=== PATIENT | male | born 1950 | race Caucasian/White ===

== ENCOUNTER 2016-12-11 16:50 | Emergency (ER) | payer OTHER ==
[2016-12-11] MEDS ORDERED: Ondansetron HCl/PF 4 MG/2 ML Vial ONE (17:16)
[2016-12-11 17:21] LABS: #Basophils 0.1 thou/uL (0.0-0.2); #Lymphocytes 0.4 thou/uL (1.20-3.40); #Monocytes 0.6 thou/uL (0.11-0.59); #Neutrophils 9.4 thou/uL (1.40-6.50); %Basophils 0.6 % (0.0-1.0); %Eosinophils 0.3 % (0.0-10.0); %Monocytes 5.5 % (0.0-10.0); Hematocrit 45.8 % (42.0-52.0); Mean Platelet Volume 6.2 fL (7.4-10.4); Red Blood Cell (RBC) Count 4.92 mill/uL (4.70-6.10); White Blood Cell (WBC) Count 10.5 thou/uL (4.8-10.8)
[2016-12-11 17:26] LABS: Magnesium 1.9 mg/dL (1.6-2.6)
[2016-12-11 17:32] LABS: ALT (SGPT) 16 U/L (0-55); AST (SGOT) 16 U/L (5-34); Alkaline Phosphatase 81 U/L (40-150); Anion Gap 14 mmol/L (10-20); BUN (Urea Nitrogen) 19 mg/dL (8.4-25.7); Bilirubin, Total 1.1 mg/dL (0.2-1.2); Calc. Creatinine Clearance 0 mL/min (70-130); Calcium 8.9 mg/dL (7.8-10.44); Carbon Dioxide 28 mmol/L (23-31); Chloride 102 mmol/L (98-107); Estimated GFR-MDRD 63; Globulin 2.9 g/dL (2.4-3.5)
[2016-12-11 17:40] LABS: Troponin I Less than 0.010 ng/mL (< 0.028)
[2016-12-11] MEDS ORDERED: cefTRIAXone\\ROCEPHIN 1 GM VIAL ONE (18:25)
--- NOTE | 2016-12-11 19:00 | RAD ---
PORTABLE CHEST 12/11/2016 An AP portable film at 1708 hours is compared with an 09/14/2016 study. The heart is normal in size , and the lungs are clear. No infiltrate or effusion was seen. There is no vascular congestion or edema. The mediastinum appears normal, and the trachea is midline. IMPRESSION: No acute findings. POS: HOME
[2016-12-11] MEDS ORDERED: Acetaminophen 500 MG TAB ONE ×2 (19:22→19:41)
--- NOTE | 2016-12-11 20:44 | ERRECORD ---
[facility] EMERGENCY RECORD HPI URI (17:54 JPIP) CHIEF COMPLAINT: Patient presents for evaluation of cough, Patient presents for evaluation of + nausea and vomiting with nonproductive cough and fever, states "I don't feel well". HISTORIAN: History provided by patient. LOCATION: No localizing symptoms. SEVERITY: Current severity of pain rated as 0/10. TIME COURSE: Sudden onset of symptoms, Date and time of onset was last night the vomiting and fever started, Symptoms are worsening, today started feeling weak, describes generalized weakness. ASSOCIATED WITH: No associated chest pain, Associated with fever, Measured maximum temperature 101 to 101.9 degrees, No associated headache, No associated neck pain, No associated shortness of breath. EXACERBATED BY: Patient's condition exacerbated by movement. RELIEVED BY: Patient's condition relieved by nothing. ROS (17:56 JPIP) CONSTITUTIONAL: Historian reports chills, reports fatigue, reports fever. measured temperature of 101, Historian reports malaise, reports weakness. ENT: Historian denies dysphagia, denies sinus pain, denies sore throat. CARDIOVASCULAR: Historian denies chest pain, reports palpitations. RESPIRATORY: Historian reports cough, denies shortness of breath, denies sputum, denies stridor, denies wheezing. GI: Historian denies diarrhea, reports nausea, reports vomiting. SKIN: Historian denies rash, denies skin changes, denies skin lesions. NEUROLOGIC: Historian denies confusion, denies dizziness, denies focal weakness, denies lethargy, denies mental status changes. NOTES: All systems reviewed, negative except as described above. PAST MEDICAL HISTORY (17:31 ERUI) MEDICAL HISTORY: Notes: AFIB, Flu vaccine not up to date, Tetanus immunization up to date, Pneumococcal vaccine up to date, Past medical history includes cardiac history, Notes: GERD, Flu vaccine not up to date, Tetanus immunization up to date, Past medical history includes history of hypertension, which has been treated. MALE SURGICAL HISTORY: Patient has no surgical history. PSYCHIATRIC HISTORY: No previous psychiatric history. SOCIAL HISTORY: Patient drinks socially, every week, Patient denies drug use, Patient has no smoking history. &a-1R&a+25V*p+0X*[id number]*c202B*c15G*c2P*p-0X&a-25V&a+1R Name: Ryan Hicks : 1950 M66 MedRec: [id number] AcctNum: [id number] Prepared: Noam Dec 11, 2016 19:58 by Interface Page 1 of 4 pMD [facility] EMERGENCY RECORD KNOWN ALLERGIES No Known Allergies (Unconfirmed) No Known Drug Allergies CURRENT MEDICATIONS Eliquis: TABLET : Strength - 5 mg : ORAL Patient Dose: 1 tab(s) Oral 2 times a day. (17:01 ERUI) lisinopril: TABLET : Strength - 5 mg : ORAL Patient Dose: 1 tab(s) Oral once a day. (17:01 ERUI) montelukast: TABLET : Strength - 10 mg : ORAL Patient Dose: 1 tab(s) Oral once a day (in the morning). (17:01 ERUI) meTOPROLOL tartrate: TABLET : Strength - 50 mg : ORAL Patient Dose: 1 tab(s) Oral 2 times a day. (17:02 ERUI) fluticasone: SPRAY, SUSPENSION : Strength - 50 mcg : NASAL Patient Dose: 2 spray(s) Nares Both once a day. (17:03 ERUI) biotin: CAPSULE : Strength - 10,000 mcg : ORAL Patient Dose: 1 tab(s) Oral once a day. (17:04 ERUI) VITAL SIGNS VITAL SIGNS: BP: 110/74, Pulse: 107-144 (Irregular), Resp: 18, Temp: 98.5 (Oral), Pain: 0, O2 sat: 94 on Room Air, Time: 12/11/2016 16:55. (16:55 AHOO) BP: 104/67, Pulse: 99, Resp: 18, Pain: 0, O2 sat: 98 on Room Air, Time: 12/11/2016 17:32. (17:32 AHOO) BP: 110/67, Pulse: 94, Resp: 18, Pain: 0, O2 sat: 94 on Room Air, Time: 12/11/2016 18:00. (18:00 AHOO) BP: 116/68, Pulse: 107, Resp: 18, Pain: 0, O2 sat: 93 on Room Air, Time: 12/11/2016 18:30. (18:30 AHOO) BP: 121/74, Pulse: 104, Resp: 18, Pain: 0, O2 sat: 97 on Room Air, Time: 12/11/2016 19:00. (19:00 AHOO) BP: 97/68, Pulse: 103, Resp: 18, Temp: 101.3 (Oral), Pain: 0, O2 sat: 96 on Room Air, Time: 12/11/2016 19:16. (19:16 AHOO) PHYSICAL EXAM (17:57 JPIP) CONSTITUTIONAL: Vital signs reviewed, Patient afebrile, Pulse, tachycardic, Blood pressure, hypotensive, Respiratory rate normal, Patient appears, uncomfortable, Patient appears pain free, Patient alert and oriented to person, place and time. HEAD: Head exam included findings of head atraumatic, normocephalic. EYES: Eye exam included findings of eyelids normal to inspection, &a-1R&a+25V*p+0X*[id number]*c202B*c15G*c2P*p-0X&a-25V&a+1R Name: Ryan Hicks : 1950 M66 MedRec: [id number] AcctNum: [id number] Prepared: Noam Dec 11, 2016 19:58 by Interface Page 2 of 4 pMD [facility] EMERGENCY RECORD Conjunctiva normal, Sclera normal, no periorbital ecchymosis, no periorbital edema, no periorbital erythema. ENT: Pharynx exam normal, not injected, no swelling, symmetrical, Uvula exam normal, midline, no edema, Mouth exam normal, mucous membranes moist. NECK: Neck exam included findings of normal range of motion, Trachea midline, no carotid bruits, no jugular venous distention, no cervical adenopathy, no tenderness. RESPIRATORY CHEST: Respiratory exam included findings of no respiratory distress, Breath sounds clear, No wheezing, No rales, No rhonchi, Breath sounds not absent, Breath sounds not diminished. CARDIOVASCULAR: Cardiovascular exam included findings of, rate tachycardic, unable to determine if it is irregularly irregular. ABDOMEN MALE: Abdominal exam included findings of abdomen nontender, Bowel sounds, hypoactive, Liver normal, Spleen normal, no distension, no mass, no pulsatile masses, no peritoneal signs, no rigidity, no guarding, no rebound. BACK: no costovertebral angle tenderness. UPPER EXTREMITY: Upper extremity exam included findings of inspection normal, Range of motion normal. LOWER EXTREMITY: Lower extremity exam included findings of inspection normal, Range of motion normal, no edema. NEURO: Lavinia coma scale 15, Neuro exam findings include patient oriented to person, place and time, Speech normal, no focal motor deficits. SKIN: Skin exam included findings of skin warm, dry, and, pale. LYMPHATIC: Lymphatic exam included findings of cervical nodes normal, Submandibular normal. PSYCHIATRIC: Psychiatric exam included findings of patient oriented to person place and time, Normal affect. EKG INTERPRETATION (17:58 JPIP) MONITOR STRIP: actuarial intern strip interpreted by Emergency Department Physician, Monitor strip shows atrial fibrillation with rapid ventricular response, with no ectopics. 12 LEAD EKG INTERPRETATION: 12 lead EKG interpreted by Emergency Department Physician at time of study, 12 lead EKG shows, atrial fibrillation with rapid ventricular response, Rate (beats per minute): 132, with no ectopics, Conduction with, ST segments normal, T waves, flattened, Areas affected: lateral leads, Clinical impression:, dysrhythmia - atrial. RADIOLOGYINTERPRETATION (17:27 JPIP) CHEST: Chest films negative, no infiltrates, no pneumothorax, no hemothorax, no masses, no cardiomegaly, no congestive heart failure, no effusion, no free air. [employer]: Preliminary review of x-rays by, ED Physician. &a-1R&a+25V*p+0X*[id number]*c202B*c15G*c2P*p-0X&a-25V&a+1R Name: Ryan Hicks Grace : 1950 M66 MedRec: [id number] AcctNum: [id number] Prepared: Noam Dec 11, 2016 19:58 by Interface Page 3 of 4 pMD [facility] EMERGENCY RECORD MEDICATION ADMINISTRATION SUMMARY Drug Name: Tylenol Extra Strength, Dose Ordered: 1000 mg, Route: Oral, Status: Given, Time: 19:23 12/11/2016, Drug Name: Normal Saline, Dose Ordered: 250 mL/hr, Route: IV Fluid Infusion, Status: Given, Time: 19:00 12/11/2016, Drug Name: Rocephin injection, Dose Ordered: 2 g, Route: IV Piggy Back, Status: Given, Time: 18:30 12/11/2016, Drug Name: Cardizem intravenous, Dose Ordered: 5 mg, Route: IV Piggy Back, Status: Given, Time: 17:22 12/11/2016, Drug Name: Zofran intravenous, Dose Ordered: 4 mg, Route: IV Push, Status: Given, Time: 17:20 12/11/2016, Drug Name: Normal Saline, Dose Ordered: 1000 mL/hr, Route: IV Fluid Infusion, Status: Given, Time: 17:16 12/11/2016, Drug Name: Cardizem intravenous, Dose Ordered: 20 mg, Route: IV Push, Status: Given, Time: 17:10 12/11/2016, Detailed record available in Medication Service section. DOCTOR NOTES RE-EVALUATION: Routine re-evaluation, after administration of, cardizem, The patient's condition has improved, patient states he feels better. (18:03 JPIP) TEXT: Discussed findings with patient, recommend transfer to [facility] for further evaluation and treatment. (18:03 JPIP) delay in transfer due to no available ambulance. Still waiting, patient is stable, except for an elevated temp of 101.3 for which he was given Tylenol 1000mg. (19:25 JPIP) PROBLEM LIST No recorded problems DIAGNOSIS (18:05 JPIP) FINAL: PRIMARY: UNSPECIFIED ATRIAL FIBRILLATION, ADDITIONAL: upper respiratory infection. PRESCRIPTION No recorded prescriptions DISPOSITION PATIENT: Disposition Type: Transfer, Disposition: Transfer to [facility], Disposition Transport: Ambulance, Condition: Good. (18:23 JPIP) Patient left the department. (19:57 WJAN) [place]: JOSE ALFREDOOO=ROSA Fontana, February KARLI=JOJO Seals, Alexus JPIP=DO Schilling Joseph WJAN=JOJO Langston, Radha &a-1R&a+25V*p+0X*[id number]*c202B*c15G*c2P*p-0X&a-25V&a+1R Name: Ryan Hicks : 1950 M66 MedRec: [id number] AcctNum: [id number] Prepared: Noam Dec 11, 2016 19:58 by Interface Page 4 of 4 pMD MTDD
--- NOTE | 2016-12-11 20:49 | PICIS ---
[facility] EMERGENCY RECORD COMMUNICATIONS (18:23 JPIP) COMMUNICATIONS: Physician, contacted/paged at [phone], Reason for notification transfer and admission, Dr Martinez accepts. TRIAGE (16:57 ERUI) TRIAGE NOTES: C/O OF NOT FEELING WELL, ONSET LAST NIGHT, HX OF AFIB, PT ALSO C/O VOMITING, FEVER, DENIES CP OR SOB. (16:57 ERUI) PATIENT: NAME: Ryan Hicks, AGE: 66, GENDER: male, : [facility] 1950, TIME OF GREET: SatDec 11, 2016 16:51, PREFERRED LANGUAGE: Maori, ETHNICITY: Not or , ECODE BILLING MAP: [facility], SSN: [id number], Zip Code: [address], KG WEIGHT: 86.18, PHONE: , , , PERSON ID: [id number], PCP: DO GARNER KRISTEL. (16:57 ERUI) COMPLAINT: VOMITING, FEVER. (16:57 ERUI) ADMISSION: URGENCY: 2 Emergent, ADMISSION SOURCE: Home, TRANSPORT: CAR, BED: TRIAGE. (16:57 ERUI) SIRS SCORING: Heart Rate 110-139 (2), Temp range 96.8-101.1 (0), respiratory rate 12-24 (0), Mental status altered: yes (1). (17:31 ERUI) TRIAGE SCREENING: Patient denies suicidal ideation, Patient denies presence of domestic violence. (17:31 ERUI) TREATMENTS IN PROGRESS: Treatments given Prehospital: NONE. (17:31 ERUI) PROVIDERS: TRIAGE NURSE: Alexus Seals RN. (16:57 ERUI) PREVIOUS VISIT ALLERGIES: No Known Drug Allergies. (16:57 ERUI) No Known Drug Allergies. (17:31 ERUI) KNOWN ALLERGIES No Known Allergies (Unconfirmed) No Known Drug Allergies CURRENT MEDICATIONS Eliquis: TABLET : Strength - 5 mg : ORAL Patient Dose: 1 tab(s) Oral 2 times a day. (17:01 ERUI) lisinopril: TABLET : Strength - 5 mg : ORAL Patient Dose: 1 tab(s) Oral once a day. (17:01 ERUI) montelukast: TABLET : Strength - 10 mg : ORAL Patient Dose: 1 tab(s) Oral once a day (in the morning). (17:01 ERUI) meTOPROLOL tartrate: TABLET : Strength - 50 mg : ORAL Patient Dose: 1 tab(s) Oral 2 times a day. (17:02 ERUI) fluticasone: SPRAY, SUSPENSION : Strength - 50 mcg : NASAL Patient Dose: 2 spray(s) Nares Both once a day. (17:03 &a-1R&a+25V*p+0X*j0881A*c202B*c15G*c2P*p-0X&a-25V&a+1R Name: Ryan Hicks : 1950 M66 MedRec: [id number] AcctNum: [id number] Prepared: Noam Dec 11, 2016 20:04 by Interface Page 1 of 14 pMD [facility] EMERGENCY RECORD ERUI) biotin: CAPSULE : Strength - 10,000 mcg : ORAL Patient Dose: 1 tab(s) Oral once a day. (17:04 ERUI) VITAL SIGNS VITAL SIGNS: BP: 110/74, Pulse: 107-144 (Irregular), Resp: 18, Temp: 98.5 (Oral), Pain: 0, O2 sat: 94 on Room Air, Time: 12/11/2016 16:55. (16:55 AHOO) BP: 104/67, Pulse: 99, Resp: 18, Pain: 0, O2 sat: 98 on Room Air, Time: 12/11/2016 17:32. (17:32 AHOO) BP: 110/67, Pulse: 94, Resp: 18, Pain: 0, O2 sat: 94 on Room Air, Time: 12/11/2016 18:00. (18:00 AHOO) BP: 116/68, Pulse: 107, Resp: 18, Pain: 0, O2 sat: 93 on Room Air, Time: 12/11/2016 18:30. (18:30 AHOO) BP: 121/74, Pulse: 104, Resp: 18, Pain: 0, O2 sat: 97 on Room Air, Time: 12/11/2016 19:00. (19:00 AHOO) BP: 97/68, Pulse: 103, Resp: 18, Temp: 101.3 (Oral), Pain: 0, O2 sat: 96 on Room Air, Time: 12/11/2016 19:16. (19:16 AHOO) NURSING ASSESSMENT: CARDIOVASCULAR (17:31 ERUI) CONSTITUTIONAL: Patient arrives ambulatory, Gait steady, History obtained from patient, Patient appears comfortable, Patient cooperative, Patient alert, Oriented to person, place and time, Skin warm, Skin dry, Patient complains of FEVER, VOMTING. PAIN: Patient rates pain as 0 out of 10. CARDIOVASCULAR: Heart rhythm, atrial fibrillation with rapid ventricular response. RESPIRATORY/CHEST: Breath sounds clear, Respiratory assessment findings include respiratory effort easy, Respirations regular, Conversing normally, Neck and chest exam findings include trachea midline, Chest expansion equal, Chest movement symmetrical, no signs of distress, no associated cough noted, no associated fever. SAFETY: Side rails up, Cart/Stretcher in lowest position, Family at bedside, Call light within reach, Hospital ID band on, Patient in view of the nursing station. NURSING ASSESSMENT: FALL RISK (19:02 WJAN) FALL RISK: Fall risk assessment findings include: no history of falls (0), No bed rest greater than 2 days (0), No use of level of consciousness altering agents with mentation or cognitive changes (0), No change in blood pressure (0), No sensory deficits (0), No impaired mobility (0), No neurologic diagnosis (0), No elimination problems (0), No confusion (0), Total score 0. NURSING ASSESSMENT: SKIN (19:03 WJAN) SKIN: Skin assessment findings include skin warm, Skin dry, Skin normal in color, Inspection findings include: No pressure ulcer to the shoulder, Inspection findings include no pressure ulcer to the elbow, Inspection findings include no pressure ulcers to the hip, &a-1R&a+25V*p+0X*d3875S*c202B*c15G*c2P*p-0X&a-25V&a+1R Name: Ryan Hicks : 1950 M66 MedRec: [id number] AcctNum: [id number] Prepared: Noam Dec 11, 2016 20:04 by Interface Page 2 of 14 pMD [facility] EMERGENCY RECORD Inspection findings include no pressure ulcer to the sacrum, Inspection findings include no pressure ulcer to the heel, Inspection findings include no pressure ulcer, Inspection findings include no pressure ulcer. SAFETY: Side rails up, Cart/Stretcher in lowest position, Call light within reach, Hospital ID band on. NURSING PROCEDURE: BEDSIDE SIRS TESTING (19:04 WJAN) SCORES: Heart Rate 55-109 (0), Temp range 96.8-101.1 (0), respiratory rate 12-24 (0), Latest WBC 3-14.9 (0), Mental Status altered: no (0), Infection or Suspected Infection: No. NURSING PROCEDURE: EXECUTIVE PASTRY CHEF (17:07 AHOO) PATIENT IDENTIFIER: Patient actively involved in identification process, Patient's identity verified by patient stating name, Patient's identity verified by patient stating date, Patient's identity verified by hospital ID bracelet, Patient's identity verified by family member. NURSING PROCEDURE: EKG CHART (17:00 AHOO) PATIENT IDENTIFIER: Patient actively involved in identification process, Patient's identity verified by patient stating name, Patient's identity verified by patient stating date, Patient's identity verified by hospital ID bracelet, Patient's identity verified by family member. EKG: EKG indicated for not feeling well, 12 lead EKG performed on the left chest, done by MARISSA FRANCOIS LVN, first EKG. FOLLOW-UP: After procedure, EKG for interpretation given to Dr. DR SCHILLING. NURSING PROCEDURE: IV (17:10 ERUI) PATIENT IDENITIFIER: Patient actively involved in identification process, Patient's identity verified by patient stating name, Patient's identity verified by patient stating date. IV SITE 1: IV therapy indicated for medication administration, IV established, to the left antecubital, using an 18 gauge catheter, in one attempt, Saline lock established, Labs drawn at time of placement, labeled in the presence of the patient and sent to lab. SAFETY: Side rails up, Cart/Stretcher in lowest position, Family at bedside, Call light within reach, Hospital ID band on. NURSING PROCEDURE: NURSE NOTES NURSES NOTES: Notes: REPORT TO NIGHT NURSE. (19:32 ERUI) Patient in no apparent distress, Notes: EMS at bedside, report given to EMS. (19:53 WJAN) NURSING PROCEDURE: TRANSFER (19:53 WJAN) TRANSFER: Reason for transfer need for specialized care, Transported by non-urgent ambulance, Report called to receiving &a-1R&a+25V*p+0X*[id number]*c202B*c15G*c2P*p-0X&a-25V&a+1R Name: Ryan Hicks : 1950 M66 MedRec: [id number] AcctNum: [id number] Prepared: SatDec 11, 2016 20:04 by Interface Page 3 of 14 pMD [facility] EMERGENCY RECORD facility, Summary of Care printed, Copy of patient record prepared for receiving facility, Copy of diagnostic studies, Medication reconciliation form prepared and sent to receiving facility, Patient consent for transfer signed, Family member contacted, . BELONGINGS: Belongings remain with patient, Valuables remain with patient. SAFETY: Side rails up, Cart/Stretcher in lowest position, Family at bedside, Call light within reach, Hospital ID band on. ORDER DETAILS Order Name: B type Natriuretic Peptide, Status: Active, Time: 17:05 12/11/2016, User: FABRICE, - Ordered for: DO Schilling Joseph, - Entered by: DO Schilling Joseph - SatDec 11, 2016 17:05, - Quantity: 1, Order Name: EXECUTIVE PASTRY CHEF ED, Status: Done, Time: 17:07 12/11/2016, User: IGNACIO, - Ordered for: DO Schilling Joseph, - Entered by: DO Schilling Joseph - SatDec 11, 2016 17:05, - Quantity: 1, Order Name: Cardiac Profile w/CKMB & Troponin - I, Status: Active, Time: 17:05 12/11/2016, User: FABRICE, - Ordered for: DO Schilling Joseph, - Entered by: DO Schilling Joseph - SatDec 11, 2016 17:05, - Quantity: 1, Order Name: CBC with Differential, Status: Active, Time: 17:05 12/11/2016, User: FABRICE, - Ordered for: DO Schilling Joseph, - Entered by: DO Schilling Joseph - SatDec 11, 2016 17:05, - Quantity: 1, Order Name: Comprehensive Metabolic Panel, Status: Active, Time: 17:05 12/11/2016, User: FABRICE, - Ordered for: DO Schilling Joseph, - Entered by: DO Schilling Joseph - SatDec 11, 2016 17:05, - Quantity: 1, Order Name: EKG 12 Lead in Emergency Room, Status: Active, Time: 17:05 12/11/2016, User: FABRICE, - Ordered for: DO Schilling Joseph, - Entered by: DO Schilling Joseph - tom Dec 11, 2016 17:05, - Quantity: 1, Order Name: ERRT Pulse Oximeter ER, Status: Active, Time: 17:05 12/11/2016, User: FABRICE, - Ordered for: DO Schilling Joseph, - Entered by: DO Schilling Joseph - tom Dec 11, 2016 17:05, - Quantity: 1, Order Name: Influenza A&B Ag Screen, Status: Active, Time: 19:18 12/11/2016, User: FABRICE, - Ordered for: DO Schilling Joseph, - Entered by: DO Schilling Joseph - SatDec 11, 2016 19:18, &a-1R&a+25V*p+0X*[id number]*c202B*c15G*c2P*p-0X&a-25V&a+1R Name: Nadersalinasfaisal Ryan D : 1950 M66 MedRec: [id number] AcctNum: [id number] Prepared: SatDec 11, 2016 20:04 by Interface Page 4 of 14 D [facility] EMERGENCY RECORD - Quantity: 1, Order Name: Magnesium, Status: Active, Time: 17:05 12/11/2016, User: FABRICE, - Ordered for: DO Schilling Joseph, - Entered by: DO Schilling Joseph - SatDec 11, 2016 17:05, - Quantity: 1, Order Name: SALINE LOCK, Status: Done, Time: 17:07 12/11/2016, User: IGNACIO, - Ordered for: DO Schilling Joseph, - Entered by: DO Schilling Joseph - tom Dec 11, 2016 17:05, - Quantity: 1, Order Name: Thyroid Stimulating Hormone, Status: Active, Time: 17:27 12/11/2016, User: FABRICE, - Ordered for: DO Schilling Joseph, - Entered by: DO Schilling Joseph - tom Dec 11, 2016 17:27, - Quantity: 1, Order Name: XR Chest 1 View Portable, Status: Active, Time: 17:05 12/11/2016, User: FABRICE, - Ordered for: DO Schilling Joseph, - Entered by: DO Schilling Joseph - SatDec 11, 2016 17:05, - Quantity: 1. MEDICATION ADMINISTRATION SUMMARY Drug Name: Tylenol Extra Strength, Dose Ordered: 1000 mg, Route: Oral, Status: Given, Time: 19:23 12/11/2016, Drug Name: Normal Saline, Dose Ordered: 250 mL/hr, Route: IV Fluid Infusion, Status: Given, Time: 19:00 12/11/2016, Drug Name: Rocephin injection, Dose Ordered: 2 g, Route: IV Piggy Back, Status: Given, Time: 18:30 12/11/2016, Drug Name: Cardizem intravenous, Dose Ordered: 5 mg, Route: IV Piggy Back, Status: Given, Time: 17:22 12/11/2016, Drug Name: Zofran intravenous, Dose Ordered: 4 mg, Route: IV Push, Status: Given, Time: 17:20 12/11/2016, Drug Name: Normal Saline, Dose Ordered: 1000 mL/hr, Route: IV Fluid Infusion, Status: Given, Time: 17:16 12/11/2016, Drug Name: Cardizem intravenous, Dose Ordered: 20 mg, Route: IV Push, Status: Given, Time: 17:10 12/11/2016, Detailed record available in Medication Service section. MEDICATION SERVICE Cardizem intravenous: Order: Cardizem intravenous (diltiazem HCl) - Dose: 20 mg : IV Push Schedule: Now Ordered by: Luis Schilling DO Entered by: Luis Schilling DO SatDec 11, 2016 17:05 , Acknowledged by: Marissa Francois LVN SatDec 11, 2016 17:14 Documented as given by: Alexus Seals RN SatDec 11, 2016 17:10 Patient, Medication, Dose, Route and Time verified prior to administration. &a-1R&a+25V*p+0X*u2410Y*c202B*c15G*c2P*p-0X&a-25V&a+1R Name: Ryan Hicks : 1950 M66 MedRec: [id number] AcctNum: [id number] Prepared: SatDec 11, 2016 20:04 by Interface Page 5 of 14 pMD [facility] EMERGENCY RECORD Amount given: 20MG, Amount wasted: 30MG, IV SITE #1 IVP, initial medication, Slowly, Catheter placement confirmed via flush prior to administration, IV site without signs or symptoms of infiltration during medication administration, No swelling during administration, No drainage during administration, IV flushed after administration, Correct patient, time, route, dose and medication confirmed prior to administration, Patient advised of actions and side-effects prior to administration, Allergies confirmed and medications reviewed prior to administration, Patient in position of comfort, Side rails up, Cart in lowest position, Family at bedside. : Follow Up : Response assessment performed, No signs or symptoms of allergic reaction noted, Decreased heart rate, _IV SITE #1:_. (19:11 [facility]) Cardizem intravenous: Order: Cardizem intravenous (diltiazem HCl) - Dose: 5 mg : IV Piggy Back Schedule: Every hour Ordered by: Luis Schilling DO Entered by: Luis Schilling DO tom Dec 11, 2016 17:05 , Acknowledged by: Marissa Francois LVN SatDec 11, 2016 17:14 Documented as given by: Alexus Seals RN SatDec 11, 2016 17:22 Patient, Medication, Dose, Route and Time verified prior to administration. Amount given: 5MG/HR, IV SITE #1 IVPB or drip, initial infusion, IVPB mixed in: 100ml, Fluid: 0.9NS, via primary tubing, via pump tubing, on an IV pump, Awake and alert- acceptable, Catheter placement confirmed via flush prior to administration, IV site without signs or symptoms of infiltration during medication administration, No swelling during administration, No drainage during administration, IV flushed after administration, Correct patient, time, route, dose and medication confirmed prior to administration, Patient advised of actions and side-effects prior to administration, Allergies confirmed and medications reviewed prior to administration, Patient in position of comfort, Side rails up, Cart in lowest position, Family at bedside. : Follow Up : No signs or symptoms of allergic reaction noted, _IV SITE #1:_, Medication infusion continued upon transfer from emergency department, on SatDec 11, 2016 19:53, Total infusion time IV site 1 2 hours, 35 minutes, ., Total amount infused: 13mg, Advised not to ambulate without assistance, Patient in position of comfort, Side rails up, Cart in lowest position, Family at bedside. (19:54 WJAN) Normal Saline: Order: Normal Saline (0.9 % sodium chloride) - Dose: 1000 mL/hr : IV Fluid Infusion Schedule: Now Ordered by: Luis Schilling DO Entered by: Luis Schilling DO SatDec 11, 2016 17:06 , Acknowledged by: Marissa Francois LVN SatDec 11, 2016 17:14 Documented as given by: Marissa Francois LVN SatDec 11, 2016 17:16 Patient, Medication, Dose, Route and Time verified prior to administration. &a-1R&a+25V*p+0X*u8620N*c202B*c15G*c2P*p-0X&a-25V&a+1R Name: Kurt Ryan D : 1950 M66 MedRec: [id number] AcctNum: [id number] Prepared: SatDec 11, 2016 20:04 by Interface Page 6 of 14 pMD [facility] EMERGENCY RECORD Amount given: 1 L, IV SITE #1 IV fluids established for hydration, IV SITE #1 into left antecubital, IV SITE #1 1st bag hung, via gravity tubing, Catheter placement confirmed via flush prior to administration, IV site without signs or symptoms of infiltration during medication administration, No swelling during administration, No drainage during administration, IV flushed after administration, Correct patient, time, route, dose and medication confirmed prior to administration, Patient advised of actions and side-effects prior to administration, Allergies confirmed and medications reviewed prior to administration, Patient in position of comfort, Side rails up, Cart in lowest position, Family at bedside. : Follow Up : Response assessment performed, No signs or symptoms of allergic reaction noted, _IV SITE #1:_. (19:07 AHOO) : Follow Up : Response assessment performed, No signs or symptoms of allergic reaction noted, _IV SITE #1:_, IV fluid infusion discontinued, on SatDec 11, 2016 18:00, 45 minutes, ., Total amount infused: 1 L, IV Line flushed after administration. (18:00 OO) Normal Saline: Order: Normal Saline (0.9 % sodium chloride) - Dose: 250 mL/hr : IV Fluid Infusion Ordered by: Luis Schilling DO Entered by: Luis Schilling DO SatDec 11, 2016 19:17 , Acknowledged by: Marissa Francois LVN SatDec 11, 2016 19:20 Documented as given by: Marissa Francois LVN SatDec 11, 2016 19:00 Patient, Medication, Dose, Route and Time verified prior to administration. Verbal order read back and verified, Amount given: 250ML/HR, IV SITE #1 IV fluids established for hydration, IV SITE #1 into left antecubital, IV SITE #1 2nd bag hung, via gravity tubing, Catheter placement confirmed via flush prior to administration, IV site without signs or symptoms of infiltration during medication administration, No swelling during administration, No drainage during administration, IV flushed after administration, Correct patient, time, route, dose and medication confirmed prior to administration, Patient advised of actions and side-effects prior to administration, Allergies confirmed and medications reviewed prior to administration. : Follow Up : No signs or symptoms of allergic reaction noted, _IV SITE #1:_, IV fluid infusion continued upon transfer from emergency department, on SatDec 11, 2016 19:53, 55 minutes, ., Total amount infused: 500ml, Advised not to ambulate without assistance, Patient in position of comfort, Side rails up, Cart in lowest position, Family at bedside. (19:53 WJAN) Rocephin injection: Order: Rocephin injection (ceftriaxone sodium) - Dose: 2 g : IV Piggy Back Schedule: Now Ordered by: Luis Schilling DO Entered by: Luis Schilling DO SatDec 11, 2016 17:53 , Acknowledged by: Marissa Francois LVN SatDec 11, 2016 18:24 Documented as given by: Marissa Francois LVN SatDec 11, 2016 18:30 Patient, Medication, Dose, Route and Time verified prior to &a-1R&a+25V*p+0X*b8358W*c202B*c15G*c2P*p-0X&a-25V&a+1R Name: Ryan Hicks : 1950 M66 MedRec: [id number] AcctNum: [id number] Prepared: SatDec 11, 2016 20:04 by Interface Page 7 of 14 pMD [facility] EMERGENCY RECORD administration. Amount given: 2 GRAMS, IV SITE #1 IVPB or drip, initial infusion, Awake and alert- acceptable, Catheter placement confirmed via flush prior to administration, IV site without signs or symptoms of infiltration during medication administration, No swelling during administration, No drainage during administration, IV flushed after administration, Correct patient, time, route, dose and medication confirmed prior to administration, Patient advised of actions and side-effects prior to administration, Allergies confirmed and medications reviewed prior to administration, Patient in position of comfort, Side rails up, Cart in lowest position, Family at bedside. : Follow Up : Response assessment performed, No signs or symptoms of allergic reaction noted. (19:06 AHOO) : Follow Up : No signs or symptoms of allergic reaction noted, MD DID NOT WANT ANY BLOOD CULTURES BEFORE I STARTED ABX, Response assessment performed. (19:32 AHOO) Tylenol Extra Strength: Order: Tylenol Extra Strength (acetaminophen) - Dose: 1000 mg : Oral Schedule: Now Ordered by: Luis Schilling DO Entered by: Luis Schilling DO SatDec 11, 2016 19:18 , Acknowledged by: Marissa Francois LVN SatDec 11, 2016 19:20 Documented as given by: Marsisa Francois LVN SatDec 11, 2016 19:23 Patient, Medication, Dose, Route and Time verified prior to administration. Amount given: 1000MG, Correct patient, time, route, dose and medication confirmed prior to administration, Patient advised of actions and side-effects prior to administration, Allergies confirmed and medications reviewed prior to administration, Patient in position of comfort, Side rails up, Cart in lowest position, Family at bedside. Zofran intravenous: Order: Zofran intravenous (ondansetron HCl) - Dose: 4 mg : IV Push Schedule: Now Ordered by: Luis Schilling DO Entered by: Luis Schilling DO SatDec 11, 2016 17:06 , Acknowledged by: Marissa Francois LVN SatDec 11, 2016 17:14 Documented as given by: Alexus Seals RN SatDec 11, 2016 17:20 Patient, Medication, Dose, Route and Time verified prior to administration. Amount given: 4MG`, IV SITE #1 IVP, initial medication, Slowly, Catheter placement confirmed via flush prior to administration, IV site without signs or symptoms of infiltration during medication administration, No swelling during administration, No drainage during administration, IV flushed after administration, Correct patient, time, route, dose and medication confirmed prior to administration, Patient advised of actions and side-effects prior to administration, Allergies confirmed and medications reviewed prior to administration, Patient in position of comfort, Side rails up, Cart in lowest position, Family at bedside. &a-1R&a+25V*p+0X*z2584Q*c202B*c15G*c2P*p-0X&a-25V&a+1R Name: Ryan Hicks : 1950 M66 MedRec: [id number] AcctNum: [id number] Prepared: Noam Dec 11, 2016 20:04 by Interface Page 8 of 14 pMD [facility] EMERGENCY RECORD : Follow Up : Response assessment performed, No signs or symptoms of allergic reaction noted, _IV SITE #1:_. (19:10 OO) HPI URI (17:54 JPIP) CHIEF COMPLAINT: Patient presents for evaluation of cough, Patient presents for evaluation of + nausea and vomiting with nonproductive cough and fever, states "I don't feel well". HISTORIAN: History provided by patient. LOCATION: No localizing symptoms. SEVERITY: Current severity of pain rated as 0/10. TIME COURSE: Sudden onset of symptoms, Date and time of onset was last night the vomiting and fever started, Symptoms are worsening, today started feeling weak, describes generalized weakness. ASSOCIATED WITH: No associated chest pain, Associated with fever, Measured maximum temperature 101 to 101.9 degrees, No associated headache, No associated neck pain, No associated shortness of breath. EXACERBATED BY: Patient's condition exacerbated by movement. RELIEVED BY: Patient's condition relieved by nothing. ROS (17:56 JPIP) CONSTITUTIONAL: Historian reports chills, reports fatigue, reports fever. measured temperature of 101, Historian reports malaise, reports weakness. ENT: Historian denies dysphagia, denies sinus pain, denies sore throat. CARDIOVASCULAR: Historian denies chest pain, reports palpitations. RESPIRATORY: Historian reports cough, denies shortness of breath, denies sputum, denies stridor, denies wheezing. GI: Historian denies diarrhea, reports nausea, reports vomiting. SKIN: Historian denies rash, denies skin changes, denies skin lesions. NEUROLOGIC: Historian denies confusion, denies dizziness, denies focal weakness, denies lethargy, denies mental status changes. NOTES: All systems reviewed, negative except as described above. PAST MEDICAL HISTORY (17:31 ERUI) MEDICAL HISTORY: Notes: AFIB, Flu vaccine not up to date, Tetanus immunization up to date, Pneumococcal vaccine up to date, Past medical history includes cardiac history, Notes: GERD, Flu vaccine not up to date, Tetanus immunization up to date, Past medical history includes history of hypertension, which has been treated. MALE SURGICAL HISTORY: Patient has no surgical history. PSYCHIATRIC HISTORY: No previous psychiatric history. &a-1R&a+25V*p+0X*u3365F*c202B*c15G*c2P*p-0X&a-25V&a+1R Name: Ryan Hicks : 1950 M66 MedRec: [id number] AcctNum: [id number] Prepared: Noam Dec 11, 2016 20:04 by Interface Page 9 of 14 pMD [facility] EMERGENCY RECORD SOCIAL HISTORY: Patient drinks socially, every week, Patient denies drug use, Patient has no smoking history. PHYSICAL EXAM (17:57 JPIP) CONSTITUTIONAL: Vital signs reviewed, Patient afebrile, Pulse, tachycardic, Blood pressure, hypotensive, Respiratory rate normal, Patient appears, uncomfortable, Patient appears pain free, Patient alert and oriented to person, place and time. HEAD: Head exam included findings of head atraumatic, normocephalic. EYES: Eye exam included findings of eyelids normal to inspection, Conjunctiva normal, Sclera normal, no periorbital ecchymosis, no periorbital edema, no periorbital erythema. ENT: Pharynx exam normal, not injected, no swelling, symmetrical, Uvula exam normal, midline, no edema, Mouth exam normal, mucous membranes moist. NECK: Neck exam included findings of normal range of motion, Trachea midline, no carotid bruits, no jugular venous distention, no cervical adenopathy, no tenderness. RESPIRATORY CHEST: Respiratory exam included findings of no respiratory distress, Breath sounds clear, No wheezing, No rales, No rhonchi, Breath sounds not absent, Breath sounds not diminished. CARDIOVASCULAR: Cardiovascular exam included findings of, rate tachycardic, unable to determine if it is irregularly irregular. ABDOMEN MALE: Abdominal exam included findings of abdomen nontender, Bowel sounds, hypoactive, Liver normal, Spleen normal, no distension, no mass, no pulsatile masses, no peritoneal signs, no rigidity, no guarding, no rebound. BACK: no costovertebral angle tenderness. UPPER EXTREMITY: Upper extremity exam included findings of inspection normal, Range of motion normal. LOWER EXTREMITY: Lower extremity exam included findings of inspection normal, Range of motion normal, no edema. NEURO: [place] coma scale 15, Neuro exam findings include patient oriented to person, place and time, Speech normal, no focal motor deficits. SKIN: Skin exam included findings of skin warm, dry, and, pale. LYMPHATIC: Lymphatic exam included findings of cervical nodes normal, Submandibular normal. PSYCHIATRIC: Psychiatric exam included findings of patient oriented to person place and time, Normal affect. LAB INTERPRETATION INTERPRETATION: I reviewed the lab results, CBC abnormal, White blood cell count normal, Hemoglobin normal, Hematocrit normal, Neutrophils elevated, Chemistry normal, Cardiac enzymes abnormal, CK-MB normal, Troponin normal, &a-1R&a+25V*p+0X*w1135V*c202B*c15G*c2P*p-0X&a-25V&a+1R Name: Ryan Hicks : 1950 M66 MedRec: [id number] AcctNum: [id number] Prepared: SatDec 11, 2016 20:04 by Interface Page 10 of 14 pMD [facility] EMERGENCY RECORD BNP elevated, Liver functions normal, mag 1.9. (18:02 JPIP) Influenza negative. (19:55 JPIP) EVENTS TRANSFER: Triage to Emergency Triage. (SatDec 11, 2016 16:57 ERUI) Emergency Triage to Emergency Room -01. (16:58 ERUI) Removed from Emergency Emergency Room -01. (19:57 WJAN) RADIOLOGYINTERPRETATION (17:27 JPIP) CHEST: Chest films negative, no infiltrates, no pneumothorax, no hemothorax, no masses, no cardiomegaly, no congestive heart failure, no effusion, no free air. 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 EKG INTERPRETATION (17:58 JPIP) MONITOR STRIP: laboratory monitor strip interpreted by Emergency Department Physician, Monitor strip shows atrial fibrillation with rapid ventricular response, with no ectopics. 12 LEAD EKG INTERPRETATION: 12 lead EKG interpreted by Emergency Department Physician at time of study, 12 lead EKG shows, atrial fibrillation with rapid ventricular response, Rate (beats per minute): 132, with no ectopics, Conduction with, ST segments normal, T waves, flattened, Areas affected: lateral leads, Clinical impression:, dysrhythmia - atrial. O2SAT INTERPRETATION (17:58 JPIP) O2SAT: Continuous pulse oximetry, Oxygen saturation 96%, on room air, Oxygen saturation interpretation: Normal, No intervention required, Intervention required: patient observed. DOCTOR NOTES RE-EVALUATION: Routine re-evaluation, after administration of, cardizem, The patient's condition has improved, patient states he feels better. (18:03 JPIP) TEXT: Discussed findings with patient, recommend transfer to [facility] for further evaluation and treatment. (18:03 JPIP) delay in transfer due to no available ambulance. Still waiting, patient is stable, except for an elevated temp of 101.3 for which he was given Tylenol 1000mg. (19:25 JPIP) PROBLEM LIST No recorded problems DIAGNOSIS (18:05 JPIP) FINAL: PRIMARY: UNSPECIFIED ATRIAL FIBRILLATION, ADDITIONAL: upper respiratory infection. &a-1R&a+25V*p+0X*b8123F*c202B*c15G*c2P*p-0X&a-25V&a+1R Name: Ryan Hicks : 1950 M66 MedRec: [id number] AcctNum: [id number] Prepared: Noam Dec 11, 2016 20:04 by Interface Page 11 of 14 D [facility] EMERGENCY RECORD DISPOSITION PATIENT: Disposition Type: Transfer, Disposition: Transfer to [facility], Disposition Transport: Ambulance, Condition: Good. (18:23 JPIP) Patient left the department. (19:57 WJAN) PRESCRIPTION No recorded prescriptions IMAGING *EKG: Image captured from scanner. (17:05 AHOO) *SUPPLY CHARGE SHEET: Image captured from scanner. (19:58 WJAN) CONSENT TO TRANSFER: Image captured from scanner. (19:59 WJAN) *MEMORANDUM OF TRANSFER: Image captured from scanner. (19:59 WJAN) PHYSICIAN CERTIFICATION STATEMENT: Image captured from scanner. (20:00 WJAN) RESULTS LABORATORY: CBC with Differential Collection DT: SatDec 11, 2016 17:17, White Blood Cell (WBC) Count 10.5 thou/uL, Range (4.8-10.8), Red Blood Cell (RBC) Count 4.92 mill/uL, Range (4.70-6.10), Hemoglobin 15.5 g/dL, Range (14.0-18.0), Hematocrit 45.8 %, Range (42.0-52.0), Mean Corpuscular Volume 93.2 fl, Range (80.0-94.0), *Mean Corpuscular Hemoglobin 31.5 - H pg, Range (27.0-31.0), Mean Corpuscular HGB CONC 33.8 g/dL, Range (32.0-36.0), *RBC Distribution Width 11.4 - L %, Range (11.5-14.5), Platelet Count 203 thou/uL, Range (130-400), *Mean Platelet Volume 6.2 - L fL, Range (7.4-10.4), *%Neutrophils 89.6 - H %, Range (42.0-75.0), *%Lymphocytes 4.0 - L %, Range (21.0-51.0), %Monocytes 5.5 %, Range (0.0-10.0), %Eosinophils 0.3 %, Range (0.0-10.0), %Basophils 0.6 %, Range (0.0-1.0), *#Neutrophils 9.4 - H thou/uL, Range (1.40-6.50), *#Lymphocytes 0.4 - L thou/uL, Range (1.20-3.40), *#Monocytes 0.6 - H thou/uL, Range (0.11-0.59), #Eosinphils 0.0 thou/uL, Range (0.0-0.7), #Basophils 0.1 thou/uL, Range (0.0-0.2). (17:27 JPIP) Magnesium Collection DT: SatDec 11, 2016 17:15, Magnesium 1.9 mg/dL, Range (1.6-2.6). (17:29 JPIP) Magnesium Collection DT: SatDec 11, 2016 17:15, Magnesium 1.9 mg/dL, Range (1.6-2.6). (17:35 JPIP) Comprehensive Metabolic Panel Collection DT: SatDec 11, 2016 17:15, Sodium 140 mmol/L, Range (136-145), Potassium 4.3 mmol/L, Range (3.5-5.1), Chloride 102 mmol/L, Range (98-107), Carbon Dioxide 28 mmol/L, Range (23-31), &a-1R&a+25V*p+0X*v9828F*c202B*c15G*c2P*p-0X&a-25V&a+1R Name: Ryan Hicks Grace : 1950 M66 MedRec: [id number] AcctNum: [id number] Prepared: SatDec 11, 2016 20:04 by Interface Page 12 of 14 pMD [facility] EMERGENCY RECORD Anion Gap 14 mmol/L, Range (10-20), BUN (Urea Nitrogen) 19 mg/dL, Range (8.4-25.7), Creatinine 1.17 mg/dL, Range (0.7-1.3), Estimated GFR-MDRD 63 , Reference Range for Estimated GFR: Greater than 90, mL/min/1.73 m2 NOTE: The MDRD equation has not been validated for use, with the elderly (over 70 years of age), women, patients with, serious comorbid condition or persons with extremes of body size, muscle, mass, or nutritional status. , Glucose 110 mg/dL, Range (80-115), Calcium 8.9 mg/dL, Range (7.8-10.44), Bilirubin, Total 1.1 mg/dL, Range (0.2-1.2), Protein, Total 7.0 g/dL, Range (5.8-8.1), NOTE: Plasma values are generally 0.3 to 0.5 g/dL higher than serum values, due to the presence of fibrinogen. , Albumin 4.1 g/dL, Range (3.4-4.8), Globulin 2.9 g/dL, Range (2.4-3.5), Alb/Glob Ratio 1.4 g/dL, Range (1.2-2.2), Alkaline Phosphatase 81 U/L, Range (40-150), AST (SGOT) 16 U/L, Range (5-34), ALT (SGPT) 16 U/L, Range (0-55). (17:35 JPIP) B type Natriuretic Peptide Collection DT: SatDec 11, 2016 17:17, *B type Natriuretic Peptide 264.9 - H pg/mL, Range (0-100). (17:48 JPIP) Cardiac Profile w/CKMB & TropI Collection DT: SatDec 11, 2016 17:22, CKMB 0.6 ng/mL, Range (0-6.6), Troponin I Less than 0.010 ng/mL, Range (< 0.028), Reference Range , 0.00 - 0.028 ng/mL Negative 0.029 - 0.29 ng/mL , Indeterminate Greater or Equal to 0.3 ng/mL Strongly suggests IN , . (17:48 JPIP) Thyroid Stimulating Hormone Collection DT: SatDec 11, 2016 17:32, Thyroid Stimulating Hormone 1.0942 uIU/mL, Range (0.35-4.94). (18:11 JPIP) MICROBIOLOGY: Influenza A&B Ag Screen: [id number] Collection DT: SatDec 11, 2016 19:49, See comment below , @ ER ROOM#: [id number] Source: Nasal swab Spec Desc: , Influenza A Antigen: NEGATIVE for the , presence of , INFLUENZA A Antigen , Influenza B Antigen: NEGATIVE for the , presence of , INFLUENZA B Antigen , The rapid Flu A&B test can distinguish between influenza A , &a-1R&a+25V*p+0X*t1979F*c202B*c15G*c2P*p-0X&a-25V&a+1R Name: Ryan Hicks : 1950 M66 MedRec: [id number] AcctNum: [id number] Prepared: SatDec 11, 2016 20:04 by Interface Page 13 of 14 pMD [facility] EMERGENCY RECORD Influenza A&B Ag Screen See comment below , and B viruses, but it does not differentiate influenza , Influenza A&B Ag Screen See comment below , subtypes. , Influenza A&B Ag Screen See comment below , Influenza A&B Ag Screen See comment below , Influenza A&B Ag Screen See comment below , Influenza A&B Ag Screen See comment below , characteristics of this device with human specimens infected , Influenza A&B Ag Screen See comment below , with the 2008 H1N1 influenza virus have not been , Influenza A&B Ag Screen See comment below , established. For example: this test cannot distinguish , Influenza A&B Ag Screen See comment below , influenza infections caused by novel H1N1 influenza A , Influenza A&B Ag Screen See comment below , viruses versus seasonal influenza A viruses. , Influenza A&B Ag Screen See comment below , , Influenza A&B Ag Screen See comment below , A negative result does not exclude influenza virus , Influenza A&B Ag Screen See comment below , infection; therefore, if more conclusive testing is desired, , Influenza A&B Ag Screen See comment below , follow up confirmatory testing is warranted., Influenza A&B Ag Screen See comment below . (19:55 JPIP) [place]: AHOO=ROSA Francois, February ERUI=JOJO Seals, Alexus JPIP=DO Schilling Joseph WCLARK=JOJO Langston, Radha &a-1R&a+25V*p+0X*s9474J*c202B*c15G*c2P*p-0X&a-25V&a+1R Name: Ryan Hicks : 1950 M66 MedRec: [id number] AcctNum: [id number] Prepared: SatDec 11, 2016 20:04 by Interface Page 14 of 14 pMD MTDD
== END 2016-12-11 21:07 | disposition home or self-care (01) ==
LOC: BURERS 16:50
DX: J06.9 Acute upper respiratory infection, unspecified (principal); I48.91 Unspecified atrial fibrillation; K21.9 Gastro-esophageal reflux disease without esophagitis; I10 Essential (primary) hypertension; Z79.899 Other long term (current) drug therapy
CPT/HCPCS: 71010; 80053; 82553; 83735; 83880; 84443; 84484; 85025; 93005; 94760; 96365; 96366; 96368; 96375; 96376; J0696; J2405; J3490

== ENCOUNTER 2016-12-17 10:05 | Outpatient (CLI) | payer OTHER ==
[2016-12-17 11:23] LABS: #Basophils 0.1 thou/uL (0.0-0.2); #Eosinphils 0.4 thou/uL (0.0-0.7); #Lymphocytes 1.6 thou/uL (1.20-3.40); #Monocytes 0.6 thou/uL (0.11-0.59); #Neutrophils 5.1 thou/uL (1.40-6.50); %Basophils 1.8 % (0.0-1.0); %Eosinophils 5.5 % (0.0-10.0); %Monocytes 7.8 % (0.0-10.0); Mean Platelet Volume 6.3 fL (7.4-10.4); White Blood Cell (WBC) Count 7.9 thou/uL (4.8-10.8)
[2016-12-17 17:55] LABS: Iron 82 ug/dL (65-175)
== END 2016-12-17 10:06 ==
LOC: HPCALD 10:05
PROVIDERS: ATTEND Family Medicine
DX: D64.9 Anemia, unspecified (principal)
CPT/HCPCS: 36415; 83540; 83550; 85025

== ENCOUNTER 2018-05-07 16:14 | Outpatient (CLI) | payer MEDICARE ==
--- NOTE | 2018-05-07 18:59 | RAD ---
CHEST TWO VIEWS: 05/07/18 Comparison is made with the 12/11/16 study. The heart is normal in size and the lungs are clear. No infiltrate or effusion was seen. Degenerative changes are noted in the spine. The trachea is midline. There were no focal pulmonary findings. IMPRESSION: No acute thoracic changes. POS: HOME
== END 2018-05-07 16:15 | disposition home or self-care (01) ==
LOC: BURRAD 16:14
PROVIDERS: ATTEND Physician Assistant
DX: J20.9 Acute bronchitis, unspecified (principal)
CPT/HCPCS: 71046

== ENCOUNTER 2020-01-21 10:33 | Outpatient (CLI) | payer BC, MEDICARE ==
--- NOTE | 2020-01-22 07:41 | ULT ---
EXAM: Left lower extremity venous Doppler US HISTORY: left lower extremity edema and pain FINDINGS: Grayscale, color-flow, Doppler evaluation, spectral analysis of the left lower extremity venous struc tures is performed with 2-D imaging. The left common femoral, superficial femoral, popliteal, posterior tibial, proximal greater saphenous and profunda femoral veins are imaged. There is normal luminal compressibility, flow, and augmentation the visualized deep venous structures of the left lower extremity. IMPRESSION: No evidence of a deep vein thrombosis in the left lower extremity.
== END 2020-01-21 10:34 | disposition home or self-care (01) ==
LOC: BURULT 10:33
PROVIDERS: ATTEND Family Medicine
DX: R60.0 Localized edema (principal)

== ENCOUNTER 2021-12-20 11:47 | Outpatient (CLI) | payer MEDICARE | END 2021-12-20 11:48 | disposition home or self-care (01) | LOC: BUREKG 11:47 | PROVIDERS: ATTEND Physician Assistant | DX: I48.91 Unspecified atrial fibrillation (principal) | CPT/HCPCS: 93005; 93010 ==